=== PATIENT | female | born 1935 | race Asian ===

== ENCOUNTER 2018-12-17 09:49 | Emergency (ER) | payer MEDICARE, MEDICAID ==
[~2018-12-17] VITALS: Ht 142.2 cm; Wt 61.0 kg
[2018-12-17 09:50] VITALS: BP 158/74
[2018-12-17] MEDS ORDERED: OMEP-218 (09:57)
[2018-12-17] MEDS ORDERED: DONE5TAB82 (09:57)
[2018-12-17] MEDS ORDERED: LOSA50TA88 (09:57)
[2018-12-17] MEDS ORDERED: CIPR3OPO OP (11:00)
== END 2018-12-17 11:09 | disposition home or self-care (01) ==
LOC: M ED 09:49
DX: H10.33 Unspecified acute conjunctivitis, bilateral (principal); I10 Essential (primary) hypertension; K21.9 Gastro-esophageal reflux disease without esophagitis; G30.9 Alzheimer's disease, unspecified; Z79.899 Other long term (current) drug therapy